=== PATIENT | male | born 1965 | race Caucasian/White ===

== ENCOUNTER 2017-01-16 09:56 | Emergency (ER) | payer OTHER ==
[~2017-01-16] VITALS: Ht 175.3 cm; Wt 93.0 kg
[2017-01-16 10:05] VITALS: BP_SYST 147
--- NOTE | 2017-01-16 10:09 | NUR ---
Pt placed to ER bed 07, report given to NATALIE Samson.
--- NOTE | 2017-01-16 10:12 | NUR ---
ER at bedside examining patient.
--- NOTE | 2017-01-16 10:15 | NUR ---
Pt was drilling on his screen door yesterday and the drill bit hit his hand. There is a laceration to his left hand with minimal bleeding. Pt stated that he came in because when he opens his hand it starts to bleed. No other injuries/complaints per pt or noted. Addendum: 01/16/17 at 1116 by ISAI Pt is able to move hand and there is good cap refill to fingers.
[2017-01-16] MEDS ORDERED: LIDOCAINE 1% 10 MG/ML, 20 ML MDV IJ ONE (10:30)
[2017-01-16] MEDS ORDERED: BACITRACIN 1 GM OINT TP ONE (10:30)
--- NOTE | 2017-01-16 10:40 | NUR ---
Dr Oscar inserted 5 stitches into the pt's left hand and all stitches are visible. Pt tolerated well, it was cleaned with NS, bacitrin was applied to wound, non adhesive dressing was applied and wrapped with kerlix.
[2017-01-16] MEDS ORDERED: AMOXICILLIN/CLAVULANATE POTASSIUM 875 MG TABLET ONE (10:52)
[2017-01-16] MEDS ORDERED: AMOXICILLIN/CLAVULANATE POTASSIUM 875 MG TABLET PO ONE (11:00)
[2017-01-16 11:08] VITALS: BP_SYST 139
--- NOTE | 2017-01-16 11:08 | NUR ---
Patient given written and verbal discharge instructions and verbalizes understanding. ER MD discussed with patient the results and treatment provided. Patient in stable condition. ID arm band removed. Rx of augmentin given. Patient educated on pain management and to follow up with PMD. Pain Scale 0. Opportunity for questions provided and answered.
== END 2017-01-16 11:08 | disposition home or self-care (01) ==
LOC: SED 09:56
DX: S61.412A Laceration without foreign body of left hand, initial encounter (principal); E78.00 Pure hypercholesterolemia, unspecified; I10 Essential (primary) hypertension; W31.0XXA Contact with mining and earth-drilling machinery, initial encounter; Y93.89 Activity, other specified; Y92.89 Other specified places as the place of occurrence of the external cause; Y99.8 Other external cause status
CPT/HCPCS: 12002; 99283; J2001